=== PATIENT | female | born 1960 | race Two or more races ===

== ENCOUNTER 2022-05-10 16:47 | Emergency (ER) | payer MEDICAID, OTHER ==
[~2022-05-10] VITALS: Ht 170.2 cm; Wt 71.2 kg
--- NOTE | 2022-05-10 16:50 | NUR ---
dizziness "for a long time,takes clonazepam for dizziness
--- NOTE | 2022-05-10 17:01 | NUR ---
DR NAPIER AT BEDSIDE
[2022-05-10] MEDS ORDERED: MOME17SP BNOSTRILS (18:07)
[2022-05-10] MEDS ORDERED: LORA10TA7 PO (18:07)
--- NOTE | 2022-05-10 18:26 | NUR ---
Patient discharged to home in stable condition. Written and verbal after care instructions given. Patient verbalizes understanding of instruction.
[2022-05-10 18:28] VITALS: BP 104/62
== END 2022-05-10 18:30 | disposition home or self-care (01) ==
LOC: ER 16:58
DX: J32.9 Chronic sinusitis, unspecified (principal); F17.210 Nicotine dependence, cigarettes, uncomplicated; Z98.890 Other specified postprocedural states; Z60.2 Problems related to living alone; Z79.899 Other long term (current) drug therapy
CPT/HCPCS: 70450-TC; 70486-TC

== ENCOUNTER 2022-06-29 13:10 | Emergency (ER) | payer MEDICAID, OTHER ==
[~2022-06-29] VITALS: Ht 165.1 cm; Wt 70.4 kg
[~2022-06-29 13:10] MED LIST: LORA10TA7 PO; MOME17SP BNOSTRILS
[2022-06-29 13:12] VITALS: BP 109/71
--- NOTE | 2022-06-29 13:12 | NUR ---
BIBS FOR C/O LOWER ABDOMINAL PAIN 12/31 X FEW MONTHS. DENIES N/V/D. PT STATED THAT SHE ONLY WANTS A CT TO BE DONE. VITALS ARE WITHI NORMAL LIMITS. AWAITNG MD ORDERS.
--- NOTE | 2022-06-29 14:02 | NUR ---
PT IS REFUSING LAB DRAW, ONLY WANTS A CT.
--- NOTE | 2022-06-29 14:21 | NUR ---
PT ELOPED ER STATED THAT SHE DID NOT WANT TO WAIT TO BE SEEN BY A DOCTOR. DR LOMBARDI PUT IN ORDERS FOR LABS AND URINE TO BE COLLECTED, PT REFUSED TO HAVE BOTH TEST DONE AND STATED THAT SHE ONLY WANTS A CT. PT LEFT THE ER IN STABLE CONDITION.
== END 2022-06-29 14:23 | disposition left against medical advice (07) ==
LOC: ER 13:11
DX: R10.30 Lower abdominal pain, unspecified (principal); F17.200 Nicotine dependence, unspecified, uncomplicated; Z98.890 Other specified postprocedural states; Z60.2 Problems related to living alone; Z79.899 Other long term (current) drug therapy

== ENCOUNTER 2023-08-13 15:45 | Emergency (ER) | payer OTHER ==
[~2023-08-13] VITALS: Ht 162.6 cm; Wt 70.4 kg
[2023-08-13 15:53] VITALS: TEMP 98.3
[2023-08-13 16:22] LABS: BASOPHILS % (AUTO) 0.2 % (0.0-2.0); EOSINOPHILS % (AUTO) 0.3 % (0.0-6.0); HEMATOCRIT 43 % (33-45); HEMOGLOBIN 14.5 g/dL (11.5-14.8); LYMPHOCYTES # (AUTO) 2.3 K/uL (0.8-4.8); MEAN CORPUSCULAR HEMOGLOBIN 31 PG (26.0-33.0); MEAN CORPUSCULAR HGB CONC 34 g/dl (31.0-36.0); MEAN CORPUSCULAR VOLUME 91 fL (82-100); MONOCYTES # (AUTO) 0.8 K/uL (0.1-1.30); MONOCYTES % (AUTO) 9.3 % (2.0-12.0); NEUTROPHILS # (AUTO) 5.7 K/uL (1.8-8.9); NEUTROPHILS % (AUTO) 64.2 % (43.0-81.0); PLATELET COUNT (AUTO) 195 K/uL (150-450); RED BLOOD CELL COUNT(AUTO) 4.73 MIL/uL (4.0-5.2); RED CELL DISTRIBUTION WIDTH 13.5 % (11.5-15.0); WHITE BLOOD COUNT (AUTO) 8.8 K/uL (4.3-11.0)
[2023-08-13 16:38] LABS: APPEARANCE,URINE CLEAR (CLEAR); BILIRUBIN,URINE NEGATIVE (NEGATIVE); BLOOD, URINE TRACE-INTA Ery/uL (NEGATIVE); COLOR,URINE YELLOW (YELLOW); KETONES,URINE NEGATIVE (NEGATIVE); LEUKOCYTE ESTERASE ,URINE NEGATIVE (NEGATIVE); NITRITE, URINE NEGATIVE (NEGATIVE); PROTEIN,URINE NEGATIVE (NEGATIVE); UGLUCOSE NEGATIVE (NEGATIVE); UROBILINOGEN,URINE 0.2 EU/dL (0.2)
[2023-08-13 16:39] LABS: CALCIUM, SERUM 9.1 mg/dL (8.5-10.1); CREATININE 0.9 mg/dL (0.6-1.3); POTASSIUM 3.6 mmol/L (3.5-5.1)
[2023-08-13 16:48] LABS: ALBUMIN 3.6 g/dL (3.4-5.0); BILIRUBIN,DIRECT 0.1 mg/dL (0.0-0.2); BILIRUBIN,TOTAL 0.5 mg/dL (0.2-1.0); TOTAL PROTEIN, SERUM 7.1 g/dL (6.4-8.2)
[2023-08-13 18:02] LABS: ADD URINE CULTURE NO; BACTERIA,URINE Few /HPF (None Seen); RBC,URINE 0-2 /HPF (0-2); WBC,URINE 0-2 /HPF (0-3)
[2023-08-13] MEDS ORDERED: AMOX-430 PO (18:17)
[2023-08-13 18:33] VITALS: BP 106/70; O2SAT 100
== END 2023-08-13 18:33 | disposition home or self-care (01) ==
LOC: ER 15:50
DX: K57.32 Diverticulitis of large intestine without perforation or abscess without bleeding (principal); R10.9 Unspecified abdominal pain; R19.7 Diarrhea, unspecified; Z60.2 Problems related to living alone; Z20.822 Contact with and (suspected) exposure to COVID-19
CPT/HCPCS: 99284; 74176; 87426; 85025; 80048; 87086; 83690; 80076; 81001; 36415; C9803

== ENCOUNTER 2023-08-14 11:53 | Emergency (ER) | payer OTHER ==
[~2023-08-14] VITALS: Ht 167.6 cm; Wt 69.4 kg
[~2023-08-14 11:53] MED LIST changes: +AMOX-430 PO
[2023-08-14 12:32] VITALS: BP 141/68; TEMP 98.4
[2023-08-14 12:50] VITALS: O2SAT 97
== END 2023-08-14 12:50 | disposition home or self-care (01) ==
LOC: ER 12:40
DX: J98.11 Atelectasis (principal); Z60.2 Problems related to living alone